=== PATIENT | male | born 1965 | race African-American/Black ===

== ENCOUNTER 2023-11-23 10:23 | Emergency (ER) | payer MEDICAID ==
[~2023-11-23] VITALS: Ht 172.7 cm; Wt 91.0 kg
[2023-11-23 10:31] VITALS: TEMP 98.3; O2SAT 99
[2023-11-23 11:00] LABS: BASOPHILS % 0.3 % (0.0-2.0); EOSINOPHILS % 0.3 % (0.0-5.0); HEMATOCRIT. 42.2 % (42.0-52.0); HEMOGLOBIN. 14.3 g/dL (14.0-18.0); LYMPHOCYTES % 15.1 % (20.0-50.0); MEAN CORPUSCULAR HEMOGLOBIN 29.2 pg (28.0-32.0); MEAN CORPUSCULAR HGB CONC 33.8 g/dL (31.0-37.0); MEAN CORPUSCULAR VOLUME 86.3 fL (80.0-94.0); MEAN PLATELET VOLUME 8.9 fl (7.4-10.4); MONOCYTES % 9.8 % (2.0-8.0); NEUTROPHILS % 74.5 % (40.0-76.0); PLATELET 232 x1000/uL (130-400); RED BLOOD CELL COUNT 4.89 mill/uL (4.7-6.1); RED CELL DISTRIBUTION WIDTH 13.4 % (11.6-14.6); WHITE BLOOD COUNT 9.7 x1000/uL (4.5-11.0)
[2023-11-23 11:04] LABS: CHLORIDE 109 mEq/L (98-107); POTASSIUM 3.2 mEq/L (3.5-5.1); SODIUM 143 mEq/L (136-145)
[2023-11-23 11:06] LABS: CALCIUM 9.1 mg/dL (8.7-10.4); CARBON DIOXIDE 23 mEq/L (21-32)
[2023-11-23 11:11] LABS: CREATININE 1.1 mg/dL (0.6-1.3); GLUCOSE 147 mg/dL (70-105); UREA NITROGEN BLOOD 13 mg/dL (9-23)
[2023-11-23 11:27] LABS: CLARITY URINE TURBID (CLEAR); COLOR URINE ORANGE (YELLOW); GLUCOSE URINE NEGATIVE (NEGATIVE); KETONES URINE TRACE (NEGATIVE); LEUKOCYTE ESTERASE URINE 2+ (NEGATIVE); NITRITE URINE NEGATIVE (NEGATIVE); OCCULT BLOOD URINE 3+ (NEGATIVE); PH URINE 5.5 (4.5-8.0); PROTEIN URINE 1+ (NEGATIVE); SPECIFIC GRAVITY URINE 1.024 (1.005-1.030)
[2023-11-23 11:34] LABS: INR 0.9; PROTHROMBIN TIME 10.4 sec (9.6-11.0)
[2023-11-23 11:41] LABS: BACTERIA URINE 2+; MUCUS URINE TRACE /lpf (NONE/TRACE); RBC URINE TNTC /hpf (0-2); SQUAMOUS EPITHELIAL CELL URINE RARE /lpf (RARE/1+); WBC URINE 25-50 /hpf (0-2)
[2023-11-23] MEDS ORDERED: AMOX1TAB16 MT (13:38)
[2023-11-23] MEDS: CEFTRIAXONE 2GM/50ML 50 ML IV ONE (13:51)
[2023-11-23 15:35] VITALS: BP 148/72; PULSE 77; RESP 14
== END 2023-11-23 15:46 | disposition home or self-care (01) ==
LOC: ER 10:23
DX: T83.592A Infection and inflammatory reaction due to indwelling ureteral stent, initial encounter (principal); N20.0 Calculus of kidney; E11.9 Type 2 diabetes mellitus without complications; I10 Essential (primary) hypertension; X58.XXXA Exposure to other specified factors, initial encounter; Y93.89 Activity, other specified; Y92.89 Other specified places as the place of occurrence of the external cause; Y99.8 Other external cause status
CPT/HCPCS: 99285; 74176; 96365; 80048; 81003; 85025; 85610; 87086; 36415; J0696

== ENCOUNTER 2024-03-20 15:07 | Emergency (ER) | payer MEDICAID ==
[~2024-03-20] VITALS: Ht 182.9 cm; Wt 91.0 kg
[~2024-03-20 15:07] MED LIST: AMOX1TAB16 MT
[2024-03-20 15:09] VITALS: TEMP 98.1; O2SAT 100
[2024-03-20 17:06] LABS: BASOPHILS % 1.1 % (0.0-2.0); EOSINOPHILS % 1.1 % (0.0-5.0); HEMATOCRIT. 38.9 % (42.0-52.0); HEMOGLOBIN. 13.1 g/dL (14.0-18.0); LYMPHOCYTES % 27.5 % (20.0-50.0); MEAN CORPUSCULAR HEMOGLOBIN 29.5 pg (28.0-32.0); MEAN CORPUSCULAR HGB CONC 33.6 g/dL (31.0-37.0); MEAN CORPUSCULAR VOLUME 87.8 fL (80.0-94.0); MEAN PLATELET VOLUME 7.8 fl (7.4-10.4); MONOCYTES % 9.1 % (2.0-8.0); NEUTROPHILS % 61.2 % (40.0-76.0); PLATELET 415 x1000/uL (130-400); RED BLOOD CELL COUNT 4.43 mill/uL (4.7-6.1); RED CELL DISTRIBUTION WIDTH 12.9 % (11.6-14.6); WHITE BLOOD COUNT 5.6 x1000/uL (4.5-11.0)
[2024-03-20 17:07] LABS: CHLORIDE 110 mEq/L (98-107); POTASSIUM 3.6 mEq/L (3.5-5.1); SODIUM 145 mEq/L (136-145)
[2024-03-20 17:08] LABS: CALCIUM 9.1 mg/dL (8.7-10.4); CARBON DIOXIDE 31 mEq/L (21-32)
[2024-03-20 17:12] LABS: INR 0.9; PROTHROMBIN TIME 10.2 sec (9.6-11.0)
[2024-03-20 17:13] LABS: CREATININE 1.2 mg/dL (0.6-1.3); GLUCOSE 156 mg/dL (70-105); UREA NITROGEN BLOOD 18 mg/dL (9-23)
[2024-03-20 17:16] LABS: CLARITY URINE CLOUDY (CLEAR); COLOR URINE YELLOW (YELLOW); GLUCOSE URINE NEGATIVE (NEGATIVE); KETONES URINE NEGATIVE (NEGATIVE); LEUKOCYTE ESTERASE URINE 2+ (NEGATIVE); NITRITE URINE NEGATIVE (NEGATIVE); OCCULT BLOOD URINE 3+ (NEGATIVE); PH URINE 5.5 (4.5-8.0); PROTEIN URINE 2+ (NEGATIVE); SPECIFIC GRAVITY URINE 1.024 (1.005-1.030)
[2024-03-20 17:31] LABS: BACTERIA URINE 2+; RBC URINE TNTC /hpf (0-2); SQUAMOUS EPITHELIAL CELL URINE FEW /lpf (RARE/1+)
[2024-03-20 17:32] LABS: WBC URINE 15-25 /hpf (0-2)
[2024-03-20] MEDS: CEFTRIAXONE 1GM/50ML 50 ML IV NR (21:04)
[2024-03-20] MEDS: SODIUM CHLORIDE 0.9% 1,000 ML IV NR (21:04)
[2024-03-20] MEDS ORDERED: DOCUSATE SODIUM 100MG CAPSULE PO PRN (22:15)
[2024-03-20] MEDS ORDERED: DIPHENHYDRAMINE 50MG/ML VIAL IV PRN (22:15)
[2024-03-20] MEDS ORDERED: HYDROCODONE/ACETAMINOPHEN 5/325MG TABLET PO PRN (22:15)
[2024-03-20] MEDS ORDERED: ACETAMINOPHEN 325MG TABLET PO PRN (22:15)
[2024-03-20] MEDS ORDERED: NALOXONE HCL 0.4MG/ML VIAL IV PRN (22:15)
[2024-03-20] MEDS ORDERED: ONDANSETRON HCL 4MG/2ML INJ IV PRN (22:15)
[2024-03-20 22:23] VITALS: BP 142/73; PULSE 76; RESP 12; O2SAT 98
[2024-03-21 09:59] LABS: *AMPHETAMINES SCREEN URINE NEGATIVE (NEGATIVE)
[2024-03-21 10:00] LABS: *BARBITURATES SCREEN URINE NEGATIVE (NEGATIVE); *BENZODIAZEPINES SCREEN URINE NEGATIVE (NEGATIVE); *COCAINE SCREEN URINE PRESUMPTIVE POSITIVE (NEGATIVE); CANNABINOID URINE SCREEN NEGATIVE (NEGATIVE); ECSTASY MDMA SCREEN URINE NEGATIVE (NEGATIVE); METHADONE URINE SCREEN NEGATIVE (NEGATIVE); OPIATES URINE SCREEN NEGATIVE (NEGATIVE); PHENCYCLIDINE URINE SCREEN NEGATIVE (NEGATIVE)
== END 2024-03-20 22:40 | disposition short-term general hospital (02) ==
LOC: ER 15:07
DX: N99.522 Malfunction of incontinent external stoma of urinary tract (principal); F14.10 Cocaine abuse, uncomplicated; F12.10 Cannabis abuse, uncomplicated; I10 Essential (primary) hypertension; Z96.3 Presence of artificial larynx
CPT/HCPCS: 80305; 80048; 81003; 85025; 85610; 87086; 36415; 74176; 96365; 99285; J0696; Z7610 ×3

== ENCOUNTER 2024-05-08 08:32 | Emergency (ER) | payer MEDICAID ==
[~2024-05-08] VITALS: Ht 172.7 cm; Wt 80.0 kg
[2024-05-08 08:34] VITALS: O2SAT 100
[2024-05-08 10:09] LABS: BASOPHILS % 0.5 % (0.0-2.0); HEMATOCRIT. 50.2 % (42.0-52.0); HEMOGLOBIN. 16.3 g/dL (14.0-18.0); LYMPHOCYTES % 23.6 % (20.0-50.0); MEAN CORPUSCULAR HEMOGLOBIN 28.4 pg (28.0-32.0); MEAN CORPUSCULAR HGB CONC 32.4 g/dL (31.0-37.0); MEAN CORPUSCULAR VOLUME 87.6 fL (80.0-94.0); MONOCYTES % 9.3 % (2.0-8.0); NEUTROPHILS % 65.6 % (40.0-76.0); PLATELET 345 x1000/uL (130-400); RED BLOOD CELL COUNT 5.73 mill/uL (4.7-6.1); RED CELL DISTRIBUTION WIDTH 13.1 % (11.6-14.6); WHITE BLOOD COUNT 6.2 x1000/uL (4.5-11.0)
[2024-05-08 10:20] LABS: CARBON DIOXIDE 28 mEq/L (21-32); CHLORIDE 99 mEq/L (98-107); SODIUM 136 mEq/L (136-145)
[2024-05-08 10:21] LABS: CALCIUM 10.6 mg/dL (8.7-10.4)
[2024-05-08 10:26] LABS: GLUCOSE 108 mg/dL (70-105); UREA NITROGEN BLOOD 16 mg/dL (9-23)
[2024-05-08 10:27] LABS: ALANINE AMINOTRANSFERASE 33 IU/L (10-49); ALBUMIN 4.5 g/dL (3.2-4.8); ASPARTATE AMINOTRANSFERASE 23 IU/L (<34)
[2024-05-08 10:28] LABS: BILIRUBIN TOTAL 0.8 mg/dL (0.1-1.0)
[2024-05-08 10:53] LABS: CLARITY URINE CLOUDY (CLEAR); COLOR URINE YELLOW (YELLOW); SPECIFIC GRAVITY URINE 1.025 (1.005-1.030)
[2024-05-08 10:54] LABS: GLUCOSE URINE NEGATIVE (NEGATIVE); KETONES URINE 1+ (NEGATIVE); NITRITE URINE POSITIVE (NEGATIVE); OCCULT BLOOD URINE 3+ (NEGATIVE); PROTEIN URINE 2+ (NEGATIVE)
[2024-05-08 10:55] LABS: LEUKOCYTE ESTERASE URINE 3+ (NEGATIVE)
[2024-05-08] MEDS ORDERED: CEFP200T14 MT (11:49)
[2024-05-08 12:18] LABS: SQUAMOUS EPITHELIAL CELL URINE 3+ /lpf (RARE/1+)
[2024-05-08 12:20] LABS: WBC URINE TNTC /hpf (0-2)
[2024-05-08 12:21] LABS: BACTERIA URINE 2+
[2024-05-08 12:34] VITALS: BP 145/100; PULSE 115; RESP 16; TEMP 37.00296; O2SAT 100
== END 2024-05-08 12:38 | disposition home or self-care (01) ==
LOC: ER 08:32
DX: N39.0 Urinary tract infection, site not specified (principal); I10 Essential (primary) hypertension; F14.90 Cocaine use, unspecified, uncomplicated; F12.90 Cannabis use, unspecified, uncomplicated; Z93.3 Colostomy status
CPT/HCPCS: 36415; 74176; 80053; 81003; 85025; 87077; 87186; 99284

== ENCOUNTER 2024-05-21 18:24 | Emergency (ER) | payer MEDICAID ==
[~2024-05-21] VITALS: Ht 175.3 cm; Wt 73.0 kg
[~2024-05-21 18:24] MED LIST changes: +CEFP200T14 MT
[2024-05-21 18:26] VITALS: O2SAT 97
[2024-05-21] MEDS ORDERED: LISI-186 MT (18:32)
[2024-05-21] MEDS ORDERED: METF-414 MT (18:32)
[2024-05-21 20:54] LABS: CLARITY URINE CLOUDY (CLEAR); COLOR URINE YELLOW (YELLOW); GLUCOSE URINE NEGATIVE (NEGATIVE); KETONES URINE TRACE (NEGATIVE); LEUKOCYTE ESTERASE URINE 3+ (NEGATIVE); NITRITE URINE POSITIVE (NEGATIVE); OCCULT BLOOD URINE 3+ (NEGATIVE); PH URINE 7.5 (4.5-8.0); PROTEIN URINE 3+ (NEGATIVE); SPECIFIC GRAVITY URINE 1.018 (1.005-1.030)
[2024-05-21 21:04] LABS: WBC URINE 15-25 /hpf (0-2)
[2024-05-21 21:05] LABS: BACTERIA URINE 3+; RBC URINE 15-25 /hpf (0-2)
[2024-05-21 21:06] LABS: SQUAMOUS EPITHELIAL CELL URINE 2+ /lpf (RARE/1+)
[2024-05-21] MEDS: LIDOCAINE HCL 1% 20ML VIAL INFIL ONE (21:30)
[2024-05-21] MEDS ORDERED: CEFP200T13 MT (21:30)
[2024-05-21] MEDS: CEFTRIAXONE SODIUM 1G VIAL IM ONE (21:30)
[2024-05-21 22:29] VITALS: BP 138/89; PULSE 90; RESP 19; TEMP 36.66960; O2SAT 98
== END 2024-05-21 18:49 | disposition home or self-care (01) ==
LOC: ER 18:24
DX: Z76.0 Encounter for issue of repeat prescription (principal); N39.0 Urinary tract infection, site not specified; F14.10 Cocaine abuse, uncomplicated; F12.10 Cannabis abuse, uncomplicated; E11.9 Type 2 diabetes mellitus without complications; I10 Essential (primary) hypertension
CPT/HCPCS: 99283; 81003; 87086; 87186; 87077; 96372; J0696; J3490

== ENCOUNTER 2024-09-13 13:34 | Emergency (ER) | payer MEDICAID ==
[~2024-09-13] VITALS: Ht 177.8 cm; Wt 85.0 kg
[~2024-09-13 13:34] MED LIST changes: +AMLO5TAB88 PO; -AMOX1TAB16 MT; +BUPR-46 PO; -CEFP200T14 MT; +GABA-1180 PO; +HYDR50TA PO; +LISI-186 MT; +LOSA25TA26 PO; +METF-414 MT; +TRAZ-251 PO
[2024-09-13 13:38] VITALS: O2SAT 98
[2024-09-13 15:03] LABS: CLARITY URINE TURBID (CLEAR); COLOR URINE ORANGE (YELLOW); GLUCOSE URINE NEGATIVE (NEGATIVE); KETONES URINE NEGATIVE (NEGATIVE); LEUKOCYTE ESTERASE URINE 3+ (NEGATIVE); NITRITE URINE POSITIVE (NEGATIVE); OCCULT BLOOD URINE 3+ (NEGATIVE); PH URINE 7.5 (4.5-8.0); PROTEIN URINE 3+ (NEGATIVE)
[2024-09-13 15:20] LABS: SQUAMOUS EPITHELIAL CELL URINE NONE SEEN /lpf (RARE/1+)
[2024-09-13 15:21] LABS: BACTERIA URINE 3+; RBC URINE 50-100 /hpf (0-2); WBC URINE TNTC /hpf (0-2)
[2024-09-13 15:33] LABS: BASOPHILS % 0.5 % (0.0-2.0); EOSINOPHILS % 2.3 % (0.0-5.0); HEMATOCRIT. 36.9 % (42.0-52.0); HEMOGLOBIN. 12.4 g/dL (14.0-18.0); MEAN CORPUSCULAR HEMOGLOBIN 28.7 pg (28.0-32.0); MEAN CORPUSCULAR HGB CONC 33.6 g/dL (31.0-37.0); MEAN CORPUSCULAR VOLUME 85.4 fL (80.0-94.0); MEAN PLATELET VOLUME 8.4 fl (7.4-10.4); MONOCYTES % 12.3 % (2.0-8.0); NEUTROPHILS % 71.9 % (40.0-76.0); PLATELET 300 x1000/uL (130-400); RED BLOOD CELL COUNT 4.32 mill/uL (4.7-6.1); RED CELL DISTRIBUTION WIDTH 14.5 % (11.6-14.6); WHITE BLOOD COUNT 7.2 x1000/uL (4.5-11.0)
[2024-09-13 15:38] LABS: CHLORIDE 110 mEq/L (98-107); POTASSIUM 4.1 mEq/L (3.5-5.1); SODIUM 142 mEq/L (136-145)
[2024-09-13 15:39] LABS: CALCIUM 9.8 mg/dL (8.7-10.4); CARBON DIOXIDE 25 mEq/L (21-32)
[2024-09-13 15:44] LABS: CREATININE 1.3 mg/dL (0.6-1.3); GLUCOSE 98 mg/dL (70-105); UREA NITROGEN BLOOD 27 mg/dL (9-23)
[2024-09-13] MEDS ORDERED: CEFD300C3 MT (16:03)
[2024-09-13] MEDS: CEFTRIAXONE SODIUM 1G VIAL IM ONE (16:22)
[2024-09-13 16:28] VITALS: BP 142/64; PULSE 70; RESP 14; TEMP 37; O2SAT 98
== END 2024-09-13 16:30 | disposition home or self-care (01) ==
LOC: ER 13:34
DX: R35.0 Frequency of micturition (principal); R39.15 Urgency of urination; E11.9 Type 2 diabetes mellitus without complications; I10 Essential (primary) hypertension; F32.A Depression, unspecified; Z79.899 Other long term (current) drug therapy
CPT/HCPCS: 99283; 80048; 81003; 83690; 85025; 87086; 87186; 87077; 36415; 96372; J0696

== ENCOUNTER 2024-09-13 16:38 | Emergency (ER) | payer MEDICAID ==
[~2024-09-13] VITALS: Ht 177.8 cm; Wt 85.0 kg
[~2024-09-13 16:38] MED LIST changes: +CEFD300C3 MT
[2024-09-13 16:45] VITALS: O2SAT 99
[2024-09-13 16:55] VITALS: BP 144/78; PULSE 78; RESP 16; TEMP 37.1; O2SAT 100
== END 2024-09-13 18:06 | disposition home or self-care (01) ==
LOC: ER 16:38
DX: Z00.00 Encounter for general adult medical examination without abnormal findings (principal); I10 Essential (primary) hypertension; E11.9 Type 2 diabetes mellitus without complications; F32.A Depression, unspecified; Z79.899 Other long term (current) drug therapy
CPT/HCPCS: 99281

== ENCOUNTER 2024-11-22 15:32 | Inpatient (IN) | payer MEDICAID ==
[~2024-11-22] VITALS: Ht 180.3 cm; Wt 86.2 kg
[2024-11-22 16:11] LABS: CLARITY URINE TURBID (CLEAR); COLOR URINE ORANGE (YELLOW); GLUCOSE URINE NEGATIVE (NEGATIVE); KETONES URINE TRACE (NEGATIVE); LEUKOCYTE ESTERASE URINE 3+ (NEGATIVE); NITRITE URINE POSITIVE (NEGATIVE); OCCULT BLOOD URINE 3+ (NEGATIVE); PH URINE 6.5 (4.5-8.0); PROTEIN URINE 3+ (NEGATIVE); SPECIFIC GRAVITY URINE 1.021 (1.005-1.030); UROBILINOGEN URINE 1.0 E.U./dL (0.2-1.0)
[2024-11-22 16:28] LABS: RBC URINE 25-50 /hpf (0-2); WBC URINE TNTC /hpf (0-2)
[2024-11-22 16:29] LABS: BACTERIA URINE TRACE; SQUAMOUS EPITHELIAL CELL URINE 1+ /lpf (RARE/1+)
[2024-11-22 16:31] LABS: MUCUS URINE TRACE /lpf (NONE/TRACE)
[2024-11-22] MEDS ORDERED: AMOXICILLIN/POTASSIUM CLAVULANATE 875/125MG TAB PO STA (17:41)
[2024-11-22] MEDS: SODIUM CHLORIDE 0.9% (SEPSIS BOLUS) IV ONE (19:37)
[2024-11-22] MEDS: MORPHINE SULFATE 4 MG/ML INJ (FOR IV/IM USE) IV STA (19:38)
[2024-11-22] MEDS: ONDANSETRON HCL 4MG/2ML INJ IV STA (19:38)
[2024-11-22 19:50] LABS: HEMATOCRIT. 36.2 % (42.0-52.0); HEMOGLOBIN. 11.9 g/dL (14.0-18.0); MEAN PLATELET VOLUME 8.2 fl (7.4-10.4); PLATELET 314 x1000/uL (130-400); RED BLOOD CELL COUNT 4.24 mill/uL (4.7-6.1); RED CELL DISTRIBUTION WIDTH 14.9 % (11.6-14.6)
[2024-11-22 19:59] LABS: CREATININE 1.7 mg/dL (0.6-1.3)
[2024-11-22 20:00] VITALS: BP 131/76; PULSE 97; RESP 18; TEMP 36.7; O2SAT 100
[2024-11-22 20:00] LABS: UREA NITROGEN BLOOD 21 mg/dL (9-23)
[2024-11-22 20:01] LABS: ASPARTATE AMINOTRANSFERASE 13 IU/L (<34)
[2024-11-22 20:02] LABS: BILIRUBIN DIRECT 0.2 mg/dL (<=3.0); BILIRUBIN TOTAL 0.6 mg/dL (0.1-1.0); PROTEIN TOTAL 7.0 g/dL (6.0-8.3)
[2024-11-22 20:09] LABS: LYMPHOCYTES % MANUAL 6.0 % (20.0-50.0); MONOCYTES % MANUAL 19.0 % (2.0-8.0); NEUTROPHILS % MANUAL 75.0 % (45.0-75.0); PLATELET ESTIMATE NORMAL
[2024-11-22] MEDS: CEFTRIAXONE 2GM/50ML 50 ML IV STA (20:10)
[2024-11-22 20:13] LABS: *AMPHETAMINES SCREEN URINE NEGATIVE (NEGATIVE); *BARBITURATES SCREEN URINE NEGATIVE (NEGATIVE); *BENZODIAZEPINES SCREEN URINE NEGATIVE (NEGATIVE); *COCAINE SCREEN URINE PRESUMPTIVE POSITIVE (NEGATIVE); CANNABINOID URINE SCREEN NEGATIVE (NEGATIVE); METHADONE URINE SCREEN NEGATIVE (NEGATIVE); OPIATES URINE SCREEN NEGATIVE (NEGATIVE); PHENCYCLIDINE URINE SCREEN NEGATIVE (NEGATIVE)
[2024-11-22 20:14] LABS: ECSTASY MDMA SCREEN URINE CONF.TEST INDICATED (NEGATIVE)
[2024-11-23] VITALS (7 sets, daily range): BP systolic 100–135; BP diastolic 45–85; PULSE 78–98; RESP 17–18; TEMP 36.4–37.3; O2SAT 96–100
[2024-11-23 00:22] LABS: INR 0.9
[2024-11-23] MEDS ORDERED: DEXTROSE 50% WATER 50ML SYRINGE IV PRN ×2 (00:30→09:30)
[2024-11-23] MEDS: POTASSIUM CHLORIDE 20MEQ TABLET SR PO ONE (01:04)
[2024-11-23] MEDS: ACETAMINOPHEN 325MG TABLET PO PRN (01:04)
[2024-11-23] MEDS ORDERED: CEFTRIAXONE 1,000 MG in DEXT 5% WATER 100 ML IV SCH (01:15)
[2024-11-23] MEDS ORDERED: NALOXONE HCL 0.4MG/ML VIAL IV PRN (05:00)
[2024-11-23] MEDS: HYDROCODONE/ACETAMINOPHEN 10/325MG TABLET PO PRN (05:10)
[2024-11-23] MEDS: BLOOD SUGAR DIAGNOSTIC STRIP TEST SCH ×2 (07:22→12:20)
[2024-11-23] MEDS: INSULIN LISPRO 100 UNITS/ML SUBCUT SCH ×2 (07:23→12:50)
[2024-11-23 08:04] LABS: HEMATOCRIT. 31.5 % (42.0-52.0); HEMOGLOBIN. 10.4 g/dL (14.0-18.0); MEAN PLATELET VOLUME 8.3 fl (7.4-10.4); PLATELET 258 x1000/uL (130-400); RED BLOOD CELL COUNT 3.67 mill/uL (4.7-6.1); RED CELL DISTRIBUTION WIDTH 15.4 % (11.6-14.6)
[2024-11-23 08:26] LABS: TRIGLYCERIDE 78.0 mg/dL (0-150)
[2024-11-23 08:27] LABS: LDL CHOLESTEROL 95.0 mg/dL (5-100)
[2024-11-23] MEDS: ATORVASTATIN CALCIUM 40MG TABLET PO SCH (09:15)
[2024-11-23] MEDS: ENOXAPARIN 40MG/0.4ML SYR SUBCUT SCH (09:15)
[2024-11-23] MEDS ORDERED: ONDANSETRON HCL 4MG/2ML INJ IV PRN (09:15)
[2024-11-23] MEDS: METFORMIN HCL 500MG TABLET PO SCH (09:15)
[2024-11-23] MEDS: DOCUSATE SODIUM 250MG CAPSULE PO SCH (09:15)
[2024-11-23] MEDS ORDERED: ACETAMINOPHEN 325MG TABLET PO PRN (09:15)
[2024-11-23] MEDS: LISINOPRIL 20MG TABLET PO SCH (09:17)
[2024-11-23] MEDS ORDERED: LOSARTAN 25 MG TABLET PO SCH (09:30)
[2024-11-23] MEDS: AMLODIPINE 5MG TABLET PO SCH (09:49)
[2024-11-23] MEDS: BUPROPION HCL 150MG TABLET XL 24HR PO SCH (10:30)
[2024-11-23] MEDS: HYDROCHLOROTHIAZIDE 25MG TABLET PO SCH (10:30)
[2024-11-23 12:14] LABS: BAND% 8.0 % (1.0-6.0); LYMPHOCYTES % MANUAL 13.0 % (20.0-50.0); MONOCYTES % MANUAL 19.0 % (2.0-8.0); NEUTROPHILS % MANUAL 60.0 % (45.0-75.0); PLATELET ESTIMATE NORMAL
[2024-11-23] MEDS: GABAPENTIN 300MG CAPSULE PO SCH (13:44)
[2024-11-23] MEDS: CEFTRIAXONE 1GM/50ML 50ML IV SCH (20:20)
[2024-11-23] MEDS: TRAZODONE HCL 50MG TABLET PO SCH (20:21)
[2024-11-24] VITALS: BP 109/71; PULSE 88; RESP 19; TEMP 37.1; O2SAT 99
[2024-11-24 04:00] VITALS: BP 119/52; PULSE 88; RESP 18; TEMP 37; O2SAT 100
[2024-11-24] MEDS: LACTULOSE 20G/30ML UDC PO PRN (06:17)
[2024-11-24 08:00] VITALS: BP 103/56; PULSE 71; RESP 19; TEMP 36.4; O2SAT 95
[2024-11-24 08:27] LABS: HEMATOCRIT. 30.8 % (42.0-52.0); HEMOGLOBIN. 10.3 g/dL (14.0-18.0); MEAN PLATELET VOLUME 8.5 fl (7.4-10.4); PLATELET 258 x1000/uL (130-400); RED BLOOD CELL COUNT 3.59 mill/uL (4.7-6.1); RED CELL DISTRIBUTION WIDTH 15.0 % (11.6-14.6)
[2024-11-24 08:32] LABS: CREATININE 1.5 mg/dL (0.6-1.3)
[2024-11-24 08:33] LABS: UREA NITROGEN BLOOD 20.0 mg/dL (9-23)
[2024-11-24] MEDS: PANTOPRAZOLE SODIUM 40 MG/VIAL IV SCH (08:48)
[2024-11-24] MEDS: LISINOPRIL 20MG TABLET PO SCH (08:57)
[2024-11-24] MEDS ORDERED: LISINOPRIL 5MG TABLET PO SCH (09:00)
[2024-11-24] MEDS ORDERED: MEDICATION NOT ON FORMULARY EA (Hydrochlorothiazide 1 TAB) PO SCH (09:00)
[2024-11-24] MEDS ORDERED: MEDICATION NOT ON FORMULARY EA (Bupropion Hcl (Bupropion Xl) 1 TAB) PO SCH (09:00)
[2024-11-24] MEDS ORDERED: LEVO-65 MT (09:26)
[2024-11-24 09:47] LABS: BAND% 5.0 % (1.0-6.0); LYMPHOCYTES % MANUAL 10.0 % (20.0-50.0); MONOCYTES % MANUAL 8.0 % (2.0-8.0); NEUTROPHILS % MANUAL 77.0 % (45.0-75.0); PLATELET ESTIMATE NORMAL
[2024-11-24 12:00] VITALS: BP 107/60; PULSE 78; RESP 18; TEMP 36.6; O2SAT 96
[2024-11-24 14:36] VITALS: BP 107/60; PULSE 78; TEMP 97.9; O2SAT 96
== END 2024-11-24 15:10 | disposition home or self-care (01) | DRG 463 ==
LOC: ER 15:32 → EDBEDREQTM 20:07 → EDBEDREQ 20:07 → 6EST 21:33
PROVIDERS: ADMIT Internal Medicine; ATTEND Internal Medicine
DX: N12 Tubulo-interstitial nephritis, not specified as acute or chronic (principal); N17.9 Acute kidney failure, unspecified; D64.9 Anemia, unspecified; F12.90 Cannabis use, unspecified, uncomplicated; E87.6 Hypokalemia; E11.9 Type 2 diabetes mellitus without complications; I10 Essential (primary) hypertension; F32.A Depression, unspecified; Z99.3 Dependence on wheelchair; R31.9 Hematuria, unspecified
CPT/HCPCS: 36415; 80048; 80061; 80076; 80305; 81003; 82962; 83036; 83605; 83880; 84145; 85025; 87077; 87186; 93005; 96361; 96365; 96375; 97166; 99291; A4606; J0696; J1650; J2270; J2405; J2470; J7030

== ENCOUNTER 2024-12-24 20:40 | Emergency (ER) | payer MEDICAID ==
[~2024-12-24] VITALS: Ht 167.6 cm; Wt 70.0 kg
[~2024-12-24 20:40] MED LIST changes: -CEFD300C3 MT; +LEVO-65 MT
[2024-12-24 20:43] VITALS: O2SAT 98
[2024-12-24] MEDS: KETOROLAC 30MG/ML VIAL IM ONE (21:34)
[2024-12-24 21:36] LABS: BASOPHILS % 0.3 % (0.0-2.0); EOSINOPHILS % 2.7 % (0.0-5.0); HEMATOCRIT. 36.9 % (42.0-52.0); HEMOGLOBIN. 12.1 g/dL (14.0-18.0); LYMPHOCYTES % 7.8 % (20.0-50.0); MEAN PLATELET VOLUME 7.7 fl (7.4-10.4); MONOCYTES % 10.2 % (2.0-8.0); NEUTROPHILS % 79.0 % (40.0-76.0); PLATELET 354 x1000/uL (130-400); RED BLOOD CELL COUNT 4.19 mill/uL (4.7-6.1); RED CELL DISTRIBUTION WIDTH 14.9 % (11.6-14.6)
[2024-12-24 21:40] LABS: CLARITY URINE TURBID (CLEAR); COLOR URINE YELLOW (YELLOW); GLUCOSE URINE NEGATIVE (NEGATIVE); KETONES URINE NEGATIVE (NEGATIVE); LEUKOCYTE ESTERASE URINE 3+ (NEGATIVE); NITRITE URINE POSITIVE (NEGATIVE); OCCULT BLOOD URINE 3+ (NEGATIVE); PH URINE 7.0 (4.5-8.0); PROTEIN URINE 3+ (NEGATIVE); SPECIFIC GRAVITY URINE 1.020 (1.005-1.030); UROBILINOGEN URINE 0.2 E.U./dL (0.2-1.0)
[2024-12-24 21:49] LABS: CREATININE 1.8 mg/dL (0.6-1.3)
[2024-12-24 21:50] LABS: UREA NITROGEN BLOOD 26 mg/dL (9-23)
[2024-12-24 21:51] LABS: ASPARTATE AMINOTRANSFERASE 9 IU/L (<34)
[2024-12-24 21:52] LABS: BILIRUBIN DIRECT < 0.1 mg/dL (<=3.0); BILIRUBIN TOTAL 0.2 mg/dL (0.1-1.0); PROTEIN TOTAL 6.7 g/dL (6.0-8.3)
[2024-12-24 21:54] LABS: BACTERIA URINE 2+; SQUAMOUS EPITHELIAL CELL URINE 2+ /lpf (RARE/1+); WBC URINE TNTC /hpf (0-2)
[2024-12-25] MEDS: LEVOFLOXACIN 750MG PREMIX 150 ML IV ONE (00:49)
[2024-12-25] MEDS: SODIUM CHLORIDE 0.9% 1,000 ML IV ONE (00:49)
[2024-12-25] MEDS ORDERED: SODIUM CHLORIDE 0.9% 1,000 ML IV SCH (02:00)
[2024-12-25] MEDS ORDERED: HYDROCODONE/ACETAMINOPHEN 5/325MG TABLET PO PRN (02:00)
[2024-12-25] MEDS ORDERED: ACETAMINOPHEN 325MG TABLET PO PRN ×2 (02:00)
[2024-12-25] MEDS ORDERED: MAGNESIUM/ALUMINUM HYDROXIDE/SIMETHICONE 30ML UDC PO PRN (02:00)
[2024-12-25] MEDS ORDERED: DEXTROSE 50% WATER 50ML SYRINGE IV PRN (02:00)
[2024-12-25] MEDS ORDERED: CLONIDINE 0.1MG TABLET PO PRN (02:00)
[2024-12-25] MEDS ORDERED: MEROPENEM 1,000 MG in SODIUM CHLORIDE 0.9% 100 ML IV SCH (02:00)
[2024-12-25] MEDS ORDERED: ONDANSETRON HCL 4MG/2ML INJ IV PRN (02:00)
[2024-12-25] MEDS ORDERED: ZOLPIDEM TARTRATE 5MG TABLET PO PRN (02:00)
[2024-12-25] MEDS ORDERED: DIPHENHYDRAMINE 50MG/ML VIAL IV PRN (02:00)
[2024-12-25 02:54] VITALS: BP 109/61; PULSE 69; RESP 18; TEMP 36.8; O2SAT 98
[2024-12-25] MEDS ORDERED: MEROPENEM 1G/100ML IV SCH (06:00)
[2024-12-25] MEDS ORDERED: INSULIN LISPRO 100 UNITS/ML SUBCUT SCH (08:20)
[2024-12-25] MEDS ORDERED: BUPROPION HCL 100MG SR TABLET PO SCH (09:00)
[2024-12-25] MEDS ORDERED: BLOOD SUGAR DIAGNOSTIC STRIP TEST SCH (09:00)
[2024-12-25 12:10] LABS: *AMPHETAMINES SCREEN URINE NEGATIVE (NEGATIVE); *BARBITURATES SCREEN URINE NEGATIVE (NEGATIVE); *BENZODIAZEPINES SCREEN URINE NEGATIVE (NEGATIVE); *COCAINE SCREEN URINE PRESUMPTIVE POSITIVE (NEGATIVE); CANNABINOID URINE SCREEN NEGATIVE (NEGATIVE); ECSTASY MDMA SCREEN URINE NEGATIVE (NEGATIVE); METHADONE URINE SCREEN NEGATIVE (NEGATIVE); OPIATES URINE SCREEN NEGATIVE (NEGATIVE); PHENCYCLIDINE URINE SCREEN NEGATIVE (NEGATIVE)
[2024-12-25] MEDS ORDERED: SENNOSIDES 8.6MG TABLET PO SCH (21:00)
[2024-12-25] MEDS ORDERED: TRAZODONE HCL 50MG TABLET PO SCH (21:00)
== END 2024-12-25 03:01 | disposition admitted as inpatient to this hospital (09) ==
LOC: ER 20:40 → EDBEDREQ 12-25 01:48 → EDBEDREQTM 12-25 01:48 → EDBEDREQDT 12-25 01:48 → ER 12-25 03:01 → CMPBEDREQ 12-25 07:44
DX: E11.8 Type 2 diabetes mellitus with unspecified complications (principal); N39.0 Urinary tract infection, site not specified; E11.22 Type 2 diabetes mellitus with diabetic chronic kidney disease; F32.A Depression, unspecified; I12.9 Hypertensive chronic kidney disease with stage 1 through stage 4 chronic kidney disease, or unspecified chronic kidney disease; N18.9 Chronic kidney disease, unspecified; Z79.84 Long term (current) use of oral hypoglycemic drugs; Z79.899 Other long term (current) drug therapy; Z87.440 Personal history of urinary (tract) infections; Z89.511 Acquired absence of right leg below knee
CPT/HCPCS: 80076; 80048; 81003; 83690; 85025; 87040; 87086; 87186; 87077; 36415; 71045; 74176; 93976; 76870; 96372; 99285; 80305; 83036; 96365; 96366; J1885; J7030; Z7610; J1956; J2185

== ENCOUNTER 2025-03-11 23:24 | Inpatient (IN) | payer MEDICAID ==
[~2025-03-11] VITALS: Ht 170.2 cm; Wt 78.9 kg
[~2025-03-11 23:24] MED LIST changes: -LEVO-65 MT
[2025-03-11 23:39] VITALS: O2SAT 97
[2025-03-12 00:25] LABS: BASOPHILS % 1.0 % (0.0-2.0); EOSINOPHILS % 1.8 % (0.0-5.0); HEMATOCRIT. 34.3 % (42.0-52.0); HEMOGLOBIN. 11.3 g/dL (14.0-18.0); LYMPHOCYTES % 16.4 % (20.0-50.0); MEAN PLATELET VOLUME 8.1 fl (7.4-10.4); MONOCYTES % 12.1 % (2.0-8.0); NEUTROPHILS % 68.7 % (40.0-76.0); PLATELET 301 x1000/uL (130-400); RED BLOOD CELL COUNT 4.21 mill/uL (4.7-6.1); RED CELL DISTRIBUTION WIDTH 15.1 % (11.6-14.6)
[2025-03-12 00:38] LABS: CLARITY URINE TURBID (CLEAR); COLOR URINE ORANGE (YELLOW); CREATININE 1.8 mg/dL (0.6-1.3); GLUCOSE URINE NEGATIVE (NEGATIVE); KETONES URINE NEGATIVE (NEGATIVE); LEUKOCYTE ESTERASE URINE 3+ (NEGATIVE); NITRITE URINE POSITIVE (NEGATIVE); OCCULT BLOOD URINE 3+ (NEGATIVE); PH URINE 7.0 (4.5-8.0); PROTEIN URINE 3+ (NEGATIVE); SPECIFIC GRAVITY URINE 1.022 (1.005-1.030); UREA NITROGEN BLOOD 18 mg/dL (9-23); UROBILINOGEN URINE 1.0 E.U./dL (0.2-1.0)
[2025-03-12 00:40] LABS: ASPARTATE AMINOTRANSFERASE 11 IU/L (<34); BILIRUBIN DIRECT < 0.1 mg/dL (<=3.0); BILIRUBIN TOTAL 0.2 mg/dL (0.1-1.0); PROTEIN TOTAL 6.5 g/dL (6.0-8.3)
[2025-03-12 01:21] LABS: *AMPHETAMINES SCREEN URINE NEGATIVE (NEGATIVE); *BARBITURATES SCREEN URINE NEGATIVE (NEGATIVE); *BENZODIAZEPINES SCREEN URINE NEGATIVE (NEGATIVE); *COCAINE SCREEN URINE PRESUMPTIVE POSITIVE (NEGATIVE); CANNABINOID URINE SCREEN NEGATIVE (NEGATIVE); ECSTASY MDMA SCREEN URINE NEGATIVE (NEGATIVE); METHADONE URINE SCREEN NEGATIVE (NEGATIVE); OPIATES URINE SCREEN NEGATIVE (NEGATIVE); PHENCYCLIDINE URINE SCREEN NEGATIVE (NEGATIVE)
[2025-03-12] MEDS: CEFTRIAXONE 2GM/50ML 50 ML IV SCH (02:06)
[2025-03-12] MEDS: MORPHINE SULFATE 4 MG/ML INJ (FOR IV/IM USE) IV ONE (02:07)
[2025-03-12 06:36] LABS: RBC URINE TNTC /hpf (0-2); WBC URINE TNTC /hpf (0-2)
[2025-03-12 06:37] LABS: BACTERIA URINE 4+; SQUAMOUS EPITHELIAL CELL URINE NONE SEEN /lpf (RARE/1+)
[2025-03-12] MEDS: HYDROCODONE/ACETAMINOPHEN 5/325MG TABLET PO PRN (19:23)
[2025-03-12] MEDS ORDERED: NALOXONE HCL 0.4MG/ML VIAL IV PRN (20:45)
[2025-03-12 23:00] VITALS: BP 143/75; PULSE 75; RESP 20; TEMP 36.418
[2025-03-13] VITALS: BP 149/81; PULSE 71; RESP 19; TEMP 36.6; O2SAT 96
[2025-03-13] MEDS: CEFTRIAXONE 1GM/50ML 50 ML IV NR (01:17)
[2025-03-13 04:00] VITALS: BP 163/103; PULSE 76; RESP 18; TEMP 36.5; O2SAT 98
[2025-03-13 08:00] VITALS: BP 109/71; PULSE 69; RESP 18; TEMP 35.7; O2SAT 96
[2025-03-13] MEDS: BUPROPION HCL 150MG TABLET XL 24HR PO SCH (08:25)
[2025-03-13] MEDS: LISINOPRIL 20MG TABLET PO SCH (08:30)
[2025-03-13] MEDS ORDERED: MEROPENEM 1,000 MG in SODIUM CHLORIDE 0.9% 100 ML IV SCH (11:45)
[2025-03-13 12:00] VITALS: BP 126/91; PULSE 83; RESP 19; TEMP 36.2; O2SAT 99
[2025-03-13] MEDS: MEROPENEM 1G/100ML IV SCH (13:16)
[2025-03-13] MEDS: FAMOTIDINE 20MG TABLET PO SCH (14:58)
[2025-03-13] MEDS: ACETAMINOPHEN 325MG TABLET PO PRN (14:58)
[2025-03-13 16:00] VITALS: BP 137/74; PULSE 75; RESP 18; TEMP 36.1; O2SAT 98
[2025-03-13] MEDS ORDERED: BUPROPION HCL 75MG TABLET PO SCH (18:00)
[2025-03-13] MEDS: TAMSULOSIN HCL 0.4MG SR CAPSULE PO SCH (18:56)
[2025-03-13 20:00] VITALS: BP 113/79; PULSE 74; RESP 18; TEMP 36.3; O2SAT 97
[2025-03-13] MEDS: HYDROCORTISONE 1% OINT 28.35GM TOP SCH (21:20)
[2025-03-14] VITALS: BP 120/85; PULSE 78; RESP 18; TEMP 36.7; O2SAT 98
[2025-03-14] MEDS: HYDROCODONE/ACETAMINOPHEN 10/325MG TABLET PO PRN (03:01)
[2025-03-14 04:00] VITALS: BP 118/82; PULSE 80; RESP 18; TEMP 36.5; O2SAT 98
[2025-03-14 08:00] VITALS: BP 140/87; PULSE 100; RESP 20; TEMP 36.9; O2SAT 94
[2025-03-14 12:00] VITALS: BP 146/79; PULSE 95; RESP 20; TEMP 36.4; O2SAT 98
[2025-03-14] MEDS ORDERED: NALOXONE HCL 0.4MG/ML VIAL IV PRN (17:15)
[2025-03-14 20:00] VITALS: PULSE 89; TEMP 37.1
[2025-03-14 20:41] LABS: CREATININE 1.9 mg/dL (0.6-1.3); UREA NITROGEN BLOOD 17.0 mg/dL (9-23)
[2025-03-14] MEDS: MAGNESIUM/ALUMINUM HYDROXIDE/SIMETHICONE 30ML UDC PO PRN (23:30)
[2025-03-14] MEDS: MEROPENEM 1G/100ML IV SCH (23:30)
[2025-03-15] VITALS (7 sets, daily range): BP systolic 104–145; BP diastolic 45–99; PULSE 61–83; RESP 18–19; TEMP 35.8–36.7; O2SAT 96–100
[2025-03-15] MEDS: ENOXAPARIN 40MG/0.4ML SYR SUBCUT SCH (09:34)
== END 2025-03-15 18:27 | disposition home or self-care (01) | DRG 463 ==
LOC: ER 23:24 → EDBEDREQ 03-12 02:06 → EDBEDREQTM 03-12 02:06 → ENRESERV 03-12 21:09 → 7EST 03-12 21:57
PROVIDERS: ADMIT Internal Medicine; ATTEND Internal Medicine
DX: N39.0 Urinary tract infection, site not specified (principal); E11.22 Type 2 diabetes mellitus with diabetic chronic kidney disease; N18.9 Chronic kidney disease, unspecified; F32.A Depression, unspecified; I12.9 Hypertensive chronic kidney disease with stage 1 through stage 4 chronic kidney disease, or unspecified chronic kidney disease; N40.0 Benign prostatic hyperplasia without lower urinary tract symptoms; F14.90 Cocaine use, unspecified, uncomplicated; Z16.12 Extended spectrum beta lactamase (ESBL) resistance; F17.210 Nicotine dependence, cigarettes, uncomplicated; Z79.84 Long term (current) use of oral hypoglycemic drugs; Z79.899 Other long term (current) drug therapy; Z87.440 Personal history of urinary (tract) infections
CPT/HCPCS: 36415; 74176; 80048; 80076; 80305; 80320; 81003; 85025; 87077; 87186; 99285; A4606; J0696; J1650; J2185; J2270; G0480